=== PATIENT | male | born 1955 | race Caucasian/White ===

== ENCOUNTER → 2019-11-30 20:31 | Outpatient (CLI) | payer MEDICARE | END | disposition home or self-care (01) | LOC: D.LABREF 20:31 | PROVIDERS: ATTEND Orthopaedic Surgery | DX: M17.12 Unilateral primary osteoarthritis, left knee (principal) ==

== ENCOUNTER 2019-12-14 09:35 | Inpatient (IN) | payer MEDICARE ==
[~2019-12-14] VITALS: Ht 177.8 cm; Wt 91.8 kg
[2019-12-14] MEDS ORDERED: ULTRAM50 MG PO (10:38)
[2019-12-14] MEDS ORDERED: NORVASC10 MG PO (10:39)
[2019-12-14] MEDS ORDERED: NEURONTIN 300300 MG PO (10:39)
[2019-12-14] MEDS ORDERED: ZANAFLEX4 MG (10:40)
[2019-12-14 11:02] LABS: BASOPHILS 0.4 % (0-2); HEMATOCRIT 44.3 % (42.0-54.0); HEMOGLOBIN 15.5 g/dL (13.5-17.5); IMMATURE GRANULOCYTES 0.2 % (0-5); LYMPHOCYTES 25.2 % (15-50); MCH 31.9 pg (26.0-34.0); MCV 91.2 fL (80.0-100.0); NEUTROPHILS 55.2 % (40-80); PLATELET COUNT 208 10x3/uL (130-400); RBC 4.86 10x6/uL (4.20-6.10); RDW 12.7 % (11.5-14.5); WBC 5.1 10x3/uL (4.8-10.8)
[2019-12-14] MEDS ORDERED: NEURONTIN 300300 MG (11:04)
[2019-12-14] MEDS ORDERED: NEURONTIN600 MG (11:05)
[2019-12-14 11:06] LABS: APTT 27.1 SECONDS (22.8-39.4); PROTIME 13.2 SECONDS (11.6-15.0)
[2019-12-14 11:08] LABS: APPEARANCE CLEAR (CLEAR); BILIRUBIN NEGATIVE (NEGATIVE); COLOR YELLOW (YELLOW); GLUCOSE NEGATIVE (NEGATIVE); KETONE NEGATIVE (NEGATIVE); NITRITE NEGATIVE (NEGATIVE); PROTEIN NEGATIVE (NEGATIVE); UROBILINOGEN NORMAL (NORMAL)
[2019-12-14 11:17] LABS: ANION GAP 8.5 mmol/L (8-16); CALCIUM 8.7 mg/dL (8.5-10.1); CARBON DIOXIDE 31.1 mmol/L (21.0-32.0); CREATININE - SERUM 1.1 mg/dL (0.6-1.3); POTASSIUM - SERUM 3.6 mmol/L (3.5-5.1)
[2019-12-21 07:45] VITALS: BP 127/76; BMI 29.1
--- NOTE | 2019-12-21 11:04 | NUR ---
LEG WAS PREPPED WITH CHLOREP[REP AFTER USING HIBICLENS AND ACOHOL
--- NOTE | 2019-12-21 12:47 | NUR ---
CARE ASSUMED FROM MERT CARLISLE RN
--- NOTE | 2019-12-21 12:49 | NUR ---
CARE ASSUMED FROM MERT CARLISLE RN
[2019-12-21 13:31] VITALS: BP 106/73
[2019-12-21 14:09] VITALS: Ht 177.8 cm; Wt 91.8 kg
--- NOTE | 2019-12-21 16:17 | NUR ---
OT NOTE: PT COMPLETED BED MOB WITH MOD A. PT COMPLETED FACE WASH WITH SETUP. [phone] THANK YOU, JACKIE RAMIREZ
[2019-12-21 17:53] VITALS: BP 115/74
[2019-12-21 18:08] VITALS: BP 115/74
--- NOTE | 2019-12-21 20:59 | NUR ---
REC'D WALKING ROUNDS CHGE OF SHIFT DRSG DRY AND INTACT LEFT KNEE WITH WOUND VAC IN PLACE GLENN JAIMES CPM KORINA WELL FOOT PINK AND WARM PEADAL PULSE PRESENT STATES BLK HAS WORN OFF ALREADY RATING PAIN5 ON 1-10 PAIN SCALE. WILL CONTINUE TO MONITOR FOR ANY CHGES IN NEUROVASCULAR STATUS AND FOLLOW CURRENT PLAN OF CARE
[2019-12-21 21:05] VITALS: BP 130/84
[2019-12-22 01:49] VITALS: BP 113/68
[2019-12-22 05:53] VITALS: BP 148/76
[2019-12-22 06:47] LABS: BASOPHILS 0 % (0-2); EOSINOPHILS 0 % (0-7); HEMATOCRIT 40.7 % (42.0-54.0); HEMOGLOBIN 14.2 g/dL (13.5-17.5); IMMATURE GRANULOCYTES 0.2 % (0-5); LYMPHOCYTES 7.5 % (15-50); MCH 31.7 pg (26.0-34.0); MCHC 34.9 g/dL (31.0-37.0); MCV 90.8 fL (80.0-100.0); MEAN PLATELET VOLUME 11.5 fL (7.4-10.4); MONOCYTES 9.7 % (2-11); NEUTROPHILS 82.6 % (40-80); PLATELET COUNT 225 10x3/uL (130-400); RBC 4.48 10x6/uL (4.20-6.10); RDW 12.6 % (11.5-14.5); WBC 12.3 10x3/uL (4.8-10.8)
[2019-12-22 07:06] LABS: ALBUMIN 3.4 g/dL (3.4-5.0); BILIRUBIN - TOTAL 0.45 mg/dL (0.2-1.3); CARBON DIOXIDE 27.4 mmol/L (21.0-32.0); CREATININE - SERUM 1.3 mg/dL (0.6-1.3); POTASSIUM - SERUM 4.4 mmol/L (3.5-5.1); PROTEIN - SERUM 6.1 g/dL (6.4-8.2)
--- NOTE | 2019-12-22 08:34 | OP ---
PATIENT NAME: MALIHA SANTANA MEDICAL RECORD: [id number] :51 LOCATION:[facility] ADMISSION DATE:12/21/19 SURGEON: MALIHA BOO DO DATE OF OPERATION: 12/21/2019 PROCEDURE PERFORMED: Left total knee arthroplasty. PREOPERATIVE DIAGNOSIS: Left knee osteoarthritis. POSTOPERATIVE DIAGNOSIS: Left knee osteoarthritis. INDICATIONS: Mr. Santana is a 64-year-old male who has had left knee pain for quite some time. He has tried all manner of nonoperative treatment including injections, physical therapy, and is tired of the left knee pain and is affecting activities of daily living and he wants something done surgically. I informed her of the risks including infection, bleeding, damage to nerves and vessels, need for further surgery, fracture, failure of implant, continued knee pain, blood clots, continued numbness, and even . He signed the consent. SURGEON: Maliha Boo DO DESCRIPTION OF PROCEDURE: The patient received an adductor canal block in the preoperative area by anesthesia, was taken to the operative suite, given a spinal. He was then laid in the left lateral decubitus position for about 5 minutes and laid on supine and given general anesthetic and LMA was placed. He was given 2 grams of Ancef and 80 mg gentamicin and a gram of TXA and then the left lower extremity was prepped and draped in sterile fashion. A timeout was performed and everyone was in agreement with the correct side, site, patient and procedure. We then began by marking out the incision on the anterior knee and then covered in Ioban. I then used 10 blade scalpel to go down to the capsule and thorough dissection was made down to the capsule. A fresh 10 blade was used through the medial parapatellar approach through the capsule. The fat pad was partially removed and any bleeding was coagulated with Aquamantys throughout the procedure. The tourniquet was not used. The patella was then exposed and milled down. Then, the knee was flexed up and the ACL was removed and the drill was used to enter the femoral canal. Once femoral canal was entered, the distal cutting guide was used and distal femur was cut. The proximal tibia was then cut and this was exposed. A 2 mm were taken off the low portion of the medial aspect and the knee was brought to extension. Next, the menisci and any other soft tissue was removed. At that time, the medial and lateral and oblique was closed with Aquamantys. We then put the 10 extension block and was found to have an MCL release. The knee was then flexed up and the femur sized to a 70. Once femur was sized, the 4-in-1 cutting block was put on and the Chintan wing was used to ensure it would not notch and the 4-in-1 cutting block had been put on and the cuts were made through the block. The cutting block was removed and the bone was removed. The trial was then put on and the poly and tray were floated in and range of rotation was marked. I then drilled the lug holes for the femur and for the patella implant. The tibia was then exposed and sized to a 75 tray. This was reamed and then punched and then extra holes were put in the tibia for the cement. The cement was then mixed and placed on the tibial implant in the tibia and the implant was impacted into place. Excess cement was removed. The femur was impacted on and then the 10 poly was put in between them and brought to extension and the patella was irrigated out and curetted out and then cemented put in that hand on the implant and screws into place. Excess cement was removed. We then irrigated the knee and then put povidine iodine in normal OPERATIVE REPORT [id number] MALIHA SANTANA saline solution in the knee and set for 3 minutes. After 3 minutes, it was then irrigated out with over about a liter of normal saline and then the poly was size 10 fit very well, had good stability medial laterally in flexion and extension. We then irrigated one more time and the final implant was put in and locked into place by locking mechanism. Amaya and vancomycin powder then placed inside the knee and the capsule was closed with #2 Ethibond in [id number]-az-plfmu fashion. The skin was closed with 2-0 Vicryl interrupted fashion and ZipLine was placed on the knee and then the VAC placed over that. He was then awakened and taken to recovery in stable condition. Blood loss was approximately 200 mL. COMPLICATIONS: None TRANSINT:[id number] Voice Confirmation ID: [id number] DOCUMENT ID: [id number] MALIHA BOO DO at 0834 CC: [id number] DICTATION DATE: 12/21/19 1240 DISEASE CASE MANAGER: 12/21/[address] [facility] [address] [id number]
[2019-12-22 10:06] VITALS: BP 115/73
--- NOTE | 2019-12-22 12:15 | NUR ---
OT NOTE: PT DOING MUCH BETTER TODAY. REPORTS PAIN IS 8/10. STATES THAT HE WAS CHANGED FROM IV TO ORAL PAIN MED AND IT WAS NOT HELPING MUCH. PT ABLE TO PERFORM ROLLING FROM SIDE TO SIDE WITH MIN ASSIST; SUPINE TO SIT WITH MIN ASSIST. SIT TO STAND WITH SBA. AMB IN ROOM AND INTO HALLWAY APPROX 75 FT WITH WALKER, IV, WOUND VAC, AND MIN/CGA. NO DRAINAGE NOTED IN WOUND VAC CONTAINER. REQUIRES MOD ASSIST FOR LE DRESSING BUT SET UP FOR REMAINDER OF BASIC ADLS. PT REPORTS FATIGUE AND WEAKNESS UPON RETURN TO ROOM. TOLERATED SITTING UP IN CHAIR WITHOUT DIFFICULTY. ISIDRO PELLETIER, OTR/L [phone]
[2019-12-22 13:42] VITALS: BP 146/93
[2019-12-22 16:34] VITALS: BP 129/78
--- NOTE | 2019-12-22 19:30 | NUR ---
PT RESTING IN BED WITH EYS CLOSED, FAMILY AT BEDSIDE, AND CPM ON L KNEE. NO ACUTE S/S OF DISTRESS. NO C/O AT THIS TIME. PATIENT HAS IV IN R WRIST 1/2 NORMAL SALINE. IV IS PATENT WITHOUT REDNESS, SWELLING, OR TEDNERNESS. PATIENT HAD A TOTAL KNEE YESTERDAY WITH PREVENA VAC ON AND GLENN HOSE. PATIENT HAS A COLOSTOMY THAT PATIENT TAKES CARE OF THEMSELVES. CALL LIGHT IN PLACE. WILL CONTINUE TO MONITOR.
[2019-12-22 20:00] VITALS: BP 128/82
[2019-12-23] VITALS: BP 114/71
--- NOTE | 2019-12-23 03:00 | NUR ---
I have reviewed this patient and I concur with the Shift Assessment completed by the Licensed Practical Nurse today this shift.
--- NOTE | 2019-12-23 03:24 | NUR ---
I have reviewed this patient and I concur with the Shift Assessment completed by the Licensed Practical Nurse today this shift.
[2019-12-23 04:00] VITALS: BP 115/69
[2019-12-23 05:17] LABS: BASOPHILS 0.1 % (0-2); EOSINOPHILS 0.1 % (0-7); HEMATOCRIT 36.1 % (42.0-54.0); HEMOGLOBIN 12.5 g/dL (13.5-17.5); IMMATURE GRANULOCYTES 0.3 % (0-5); LYMPHOCYTES 17.7 % (15-50); MCH 31.6 pg (26.0-34.0); MCHC 34.6 g/dL (31.0-37.0); MCV 91.4 fL (80.0-100.0); MEAN PLATELET VOLUME 11.3 fL (7.4-10.4); MONOCYTES 15.4 % (2-11); NEUTROPHILS 66.4 % (40-80); RBC 3.95 10x6/uL (4.20-6.10); RDW 12.7 % (11.5-14.5)
[2019-12-23 05:27] LABS: PLATELET COUNT 176 10x3/uL (130-400); WBC 7.3 10x3/uL (4.8-10.8)
[2019-12-23 05:32] LABS: ALBUMIN 2.9 g/dL (3.4-5.0); ANION GAP 12.2 mmol/L (8-16); BILIRUBIN - TOTAL 0.54 mg/dL (0.2-1.3); CALCIUM 7.8 mg/dL (8.5-10.1); CARBON DIOXIDE 26.6 mmol/L (21.0-32.0); CREATININE - SERUM 1.1 mg/dL (0.6-1.3); POTASSIUM - SERUM 3.8 mmol/L (3.5-5.1); PROTEIN - SERUM 5.7 g/dL (6.4-8.2)
--- NOTE | 2019-12-23 08:35 | MORECARE ---
CASE MANAGEMENT DISCHARGE SUMMARY PATIENT: MALIHA RASHID UNIT: [id number] ADM DATE: 12/21/19 AGE: 64 : 53 SEX: M ROOM/BED: D.2203 AUTHOR: KETTY HARDY PHYSICIAN: REFERRING PHYSICIAN: MALIHA BOO DO DATE OF SERVICE: 12/23/19 Discharge Plan Patient Name: MALIHA RASHID [facility] [facility] 1955 Planned Disposition: Home with Home Health Anticipated Discharge Date: Discharge Date: Expected LOS: Initial Reviewer: [email or web address] Initial Review Date: 12/14/2019 Generated: 12/23/19 9:34 am DCPIA - Discharge Planning Initial Assessment Updated by [email or web address]: Catalina Diaz on 12/23/19 8:33 am * Is the patient Alert and Oriented? Yes * How many steps to enter\exit or inside your home? * PCP TRACEY PATRICK * [facility] * Preadmission Environment Home with Family * ADLs Independent * Equipment Bedside Commode Rolling Walker * Other Equipment CPM ICE MACHINE * List name and contact numbers for known caregivers / representatives who currently or will assist patient after discharge: RAJ RASHID [phone] * Verbal permission to speak to the caregivers and representatives has been obtained from the patient. N/A * Community resources currently utilized None * Additional services required to return to the preadmission environment? Yes * Can the patient safely return to the preadmission environment? Yes * Has this patient been hospitalized within the prior 30 days at any hospital? No Patient Name: MALIHA RASHID Page [phone] at 0835 All edits/amendments must be made on the electronic document DICTATION DATE: 12/23/19833 AUTO TIRE RECAPPER: GREGORY 12/23/19833 RPT#: [id number] DC DATE: STATUS: ADM IN [facility] [address] [place] [address] END OF REPORT
--- NOTE | 2019-12-23 08:41 | MORECARE ---
CASE MANAGEMENT DISCHARGE SUMMARY PATIENT: MALIHA RASHID UNIT: [id number] ADM DATE: 12/21/19 AGE: 64 : 53 SEX: M ROOM/BED: D.2203 AUTHOR: HAYLEY,DOC PHYSICIAN: REFERRING PHYSICIAN: MALIHA BOO DO DATE OF SERVICE: 12/23/19 Discharge Plan Patient Name: MALIHA RASHID Facility: [facility]:[place] : 1955 Planned Disposition: Home with Home Health Anticipated Discharge Date: Discharge Date: Expected LOS: Initial Reviewer: [email or web address] Initial Review Date: 12/14/2019 Generated: 12/23/19 9:41 am Comments DCP- Discharge Planning Updated by [email or web address]: Catalina Diaz on 12/23/19 7:[address] Patient Name: MALIHA RASHID Admission Status: Elective Accout number: [id number] Admission Date: 12-21-2019 : 1955 Admission Diagnosis: Attending: MALIHA BOO Current LOS: 2 Anticipated DC Date: Planned Disposition: Home with Home Health Primary Insurance: [employer] ADV Discharge Planning Comments: CM met with patient to complete initial dc planning assessment. CM educated patient on the CM role and verbal consent given by patient to complete assessment. Patient lives at home with his spouse where he is independent with his care. At discharge patient plans to return home and feels this is a safe discharge. CM discussed availability of home health, rehab services, and medical equipment. He has a CPM, walker, Ice Machine, BSC that was set up by Dr Boo's office. He would like to use [facility] in [place] for his PT. He states that he lives to far to come into town for PT. Patient denied any other known discharge needs at this time. CM will continue to follow and will assist as needed with dc plans/needs. Pediatric Neuropsychologist: Catalina Diaz DCPIA - Discharge Planning Initial Assessment Updated by [email or web address]: Catalina Diaz on 12/23/19 8:33 am * Is the patient Alert and Oriented? Yes * How many steps to enter\exit or inside your home? * PCP TRACEY PATRICK * [facility] * Preadmission Environment Home with Family * ADLs Independent * Equipment Bedside Commode Rolling Walker * Other Equipment CPM ICE MACHINE * List name and contact numbers for known caregivers / representatives who currently or will assist patient after discharge: RAJ RASHID [phone] * Verbal permission to speak to the caregivers and representatives has been obtained from the patient. N/A * Community resources currently utilized None * Additional services required to return to the preadmission environment? Yes * Can the patient safely return to the preadmission environment? Yes * Has this patient been hospitalized within the prior 30 days at any hospital? No Coverage Notice Reviewer: [email or web address] Jaskaran Diaz Notice Issued Date-Time: 12/23/2019 7:50 Notice Type: Patient Choice Letter Notice Delivered To: Patient Relationship to Patient: Extermination Supervisor Name: Delivery Method: HAND - Hand Delivered Neha Days: Prior Verbal Notification: Recipient Understood Notice: Yes Recipient Signature: Yes Med Rec Note Co-signed by Attending: Coverage Notice Comment: tyra for elite in todd Last DP export: 12/23/19 7:34 a Patient Name: MALIHA RASHID Page [phone] at 0841 All edits/amendments must be made on the electronic document DICTATION DATE: 12/23/19840 FISCAL ACCOUNTING CLERK: GREGORY 12/23/19840 RPT#: [id number] DC DATE: STATUS: ADM IN [facility] [address] [place] [address] END OF REPORT
[2019-12-23 08:45] VITALS: BP 138/85
--- NOTE | 2019-12-23 09:00 | NUR ---
ALERT AND ORIENTED X4 DRESSING INTACT TO LLE WITH PEDAL PULSES NOTED. UP AMBULATING WITH R/WALKER WITH TORDOL GIVEN AND DILAUDID FOR PAIN MANAGEMENT AND EFFECTIVE. COLOSTOMY INTACT. IVF INFUSING AT PRESCRIBED RATE WITH DR. BOO HERE WITH ORDERS FOR DISCHARGE. ENCOURAGED TO USE CALL LIGHT FOR ASSSIT.
--- NOTE | 2019-12-23 09:01 | MORECARE ---
CASE MANAGEMENT DISCHARGE SUMMARY PATIENT: MALIHA RASHID UNIT: [id number] ADM DATE: 12/21/19 AGE: 64 : 53 SEX: M ROOM/BED: D.2203 AUTHOR: HAYLEY,DOC PHYSICIAN: REFERRING PHYSICIAN: MALIHA BOO DO DATE OF SERVICE: 12/23/19 Discharge Plan Patient Name: MALIHA RASHID Facility: [facility]:[place] : 1955 Planned Disposition: Home with Home Health Anticipated Discharge Date: Discharge Date: Expected LOS: Initial Reviewer: [email or web address] Initial Review Date: 12/14/2019 Generated: 12/23/19 10:00 am Comments DCP- Discharge Planning Updated by [id number]: Catalina Diaz on 12/23/19 7:[address] Patient Name: MALIHA RASHID Admission Status: Elective Accout number: [id number] Admission Date: 12-21-2019 : 1955 Admission Diagnosis: Attending: MALIHA BOO Current LOS: 2 Anticipated DC Date: Planned Disposition: Home with Home Health Primary Insurance: [employer] ADV Discharge Planning Comments: CM met with patient to complete initial dc planning assessment. CM educated patient on the CM role and verbal consent given by patient to complete assessment. Patient lives at home with his spouse where he is independent with his care. At discharge patient plans to return home and feels this is a safe discharge. CM discussed availability of home health, rehab services, and medical equipment. He has a CPM, walker, Ice Machine, BSC that was set up by Dr Boo's office. He would like to use [facility] in [place] for his PT. He states that he lives to far to come into town for PT. Patient denied any other known discharge needs at this time. CM will continue to follow and will assist as needed with dc plans/needs. Operations Associate: Catalina Diaz DCPIA - Discharge Planning Initial Assessment Updated by [email or web address]: Catalina Diaz on 12/23/19 8:33 am * Is the patient Alert and Oriented? Yes * How many steps to enter\exit or inside your home? * PCP TRACEY PATRICK * [facility] * Preadmission Environment Home with Family * ADLs Independent * Equipment Bedside Commode Rolling Walker * Other Equipment CPM ICE MACHINE * List name and contact numbers for known caregivers / representatives who currently or will assist patient after discharge: RAJ RASHID [phone] * Verbal permission to speak to the caregivers and representatives has been obtained from the patient. N/A * Community resources currently utilized None * Additional services required to return to the preadmission environment? Yes * Can the patient safely return to the preadmission environment? Yes * Has this patient been hospitalized within the prior 30 days at any hospital? No External Providers [facility] Next Contact Date: Service Request Date: Service Type: Resolution: Reviewer: Comments: Coverage Notice Reviewer: [id number] Jaskaran Diaz Notice Issued Date-Time: 12/23/2019 7:50 Notice Type: Patient Choice Letter Notice Delivered To: Patient Relationship to Patient: Porter Baggage Name: Delivery Method: HAND - Hand Delivered Neha Days: Prior Verbal Notification: Recipient Understood Notice: Yes Recipient Signature: Yes Med Rec Note Co-signed by Attending: Coverage Notice Comment: tyra for ursula in todd Last DP export: 12/23/19 7:41 a Patient Name: MALIHA RASHID Page [phone] at 0901 All edits/amendments must be made on the electronic document DICTATION DATE: 12/23/19899 ELECTRIC PILE DRIVER OPERATOR: GREGORY 12/23/19899 RPT#: [id number] DC DATE: STATUS: ADM IN [facility] [address] [place] [address] END OF REPORT
[2019-12-23] MEDS ORDERED: VISTARIL50 MG PO (09:14)
[2019-12-23] MEDS ORDERED: KEFLEX500 MG PO (09:14)
[2019-12-23] MEDS ORDERED: ASPIRIN81 MG PO (09:14)
[2019-12-23] MEDS ORDERED: DILAUDID4 MG PO (09:17)
--- NOTE | 2019-12-23 13:30 | NUR ---
IV DISCONTINUED AND VERBALIZED UNDERSTANDING OF DISCHARGE INSTRUCTIONS. STABLE AT TIME OF DEPARTURE WITH PORVENA VAC INTAACT TO LEFT KNEE.
--- NOTE | 2019-12-24 15:49 | MORECARE ---
CASE MANAGEMENT DISCHARGE SUMMARY PATIENT: MALIHA RASHID UNIT: [id number] ADM DATE: 12/21/19 AGE: 64 : 53 SEX: M ROOM/BED: D.2203 AUTHOR: HAYLEY,DOC PHYSICIAN: REFERRING PHYSICIAN: MALIHA BOO DO DATE OF SERVICE: 12/24/19 Discharge Plan Patient Name: MALIHA RASHID Facility: [facility]:[place] : 1955 Planned Disposition: Home with Home Health Anticipated Discharge Date: Discharge Date: 12/23/2019 Expected LOS: Initial Reviewer: [email or web address] Initial Review Date: 12/14/2019 Generated: 12/24/19 4:48 pm Comments DCP- Discharge Planning Updated by [email or web address]: Catalina Diaz on 12/23/19 7:[address] Patient Name: MALIHA RASHID Admission Status: Elective Accout number: [id number] Admission Date: 12-21-2019 : 1955 Admission Diagnosis: Attending: MALIHA BOO Current LOS: 2 Anticipated DC Date: Planned Disposition: Home with Home Health Primary Insurance: [employer] ADV Discharge Planning Comments: CM met with patient to complete initial dc planning assessment. CM educated patient on the CM role and verbal consent given by patient to complete assessment. Patient lives at home with his spouse where he is independent with his care. At discharge patient plans to return home and feels this is a safe discharge. CM discussed availability of home health, rehab services, and medical equipment. He has a CPM, walker, Ice Machine, BSC that was set up by Dr Boo's office. He would like to use [facility] in [place] for his PT. He states that he lives to far to come into town for PT. Patient denied any other known discharge needs at this time. CM will continue to follow and will assist as needed with dc plans/needs. Tribunal Member: Catalina Diaz DCPIA - Discharge Planning Initial Assessment Updated by [email or web address]: Catalina Diaz on 12/23/19 8:33 am * Is the patient Alert and Oriented? Yes * How many steps to enter\exit or inside your home? * PCP TRACEY PATRICK * [facility] * Preadmission Environment Home with Family * ADLs Independent * Equipment Bedside Commode Rolling Walker * Other Equipment CPM ICE MACHINE * List name and contact numbers for known caregivers / representatives who currently or will assist patient after discharge: RAJ RASHID [phone] * Verbal permission to speak to the caregivers and representatives has been obtained from the patient. N/A * Community resources currently utilized None * Additional services required to return to the preadmission environment? Yes * Can the patient safely return to the preadmission environment? Yes * Has this patient been hospitalized within the prior 30 days at any hospital? No Coverage Notice Reviewer: [email or web address] Jaskaran Diaz Notice Issued Date-Time: 12/23/2019 7:50 Notice Type: Patient Choice Letter Notice Delivered To: Patient Relationship to Patient: Evaluation Engineer Name: Delivery Method: HAND - Hand Delivered Neha Days: Prior Verbal Notification: Recipient Understood Notice: Yes Recipient Signature: Yes Med Rec Note Co-signed by Attending: Coverage Notice Comment: tyra for elite in todd Last DP export: 12/23/19 8:01 a Patient Name: MALIHA RASHID Page [phone] at 1549 All edits/amendments must be made on the electronic document DICTATION DATE: 12/24/19 1548 MEDICAL BILLING MANAGER: GREGORY 12/24/19 1548 RPT#: [id number] DC DATE:12/23/19 STATUS: DIS IN [facility] [address] [place] [address] END OF REPORT
== END 2019-12-23 13:30 | disposition home health service (06) | DRG 470 ==
LOC: D.SDCHOLD 12-21 07:10 → D.MS 12-21 07:10 → D.SDCHOLD 12-21 09:30 → D.MS 12-21 12:55
PROVIDERS: Internal Medicine Nephrology; ADMIT Orthopaedic Surgery; ATTEND Orthopaedic Surgery
PROC: 0SRD0J9 Replacement of Left Knee Joint with Synthetic Substitute, Cemented, Open Approach (ICD-10-PCS; principal; 2019-12-21 09:30)
DX: M17.12 Unilateral primary osteoarthritis, left knee (principal); I10 Essential (primary) hypertension; Z85.038 Personal history of other malignant neoplasm of large intestine

== ENCOUNTER → 2020-07-26 16:00 | Outpatient (CLI) | payer MEDICARE ==
[2019-12-21 14:09] VITALS: BMI 29.0
[~2020-07-26 16:00] MED LIST: ASPIRIN81 MG PO; DILAUDID4 MG PO; KEFLEX500 MG PO; NEURONTIN 300300 MG; NEURONTIN 300300 MG PO; NEURONTIN600 MG; NORVASC10 MG PO; ULTRAM50 MG PO; VISTARIL50 MG PO; ZANAFLEX4 MG
[2020-07-26 18:16] LABS: BASOPHILS 0.4 % (0-2); EOSINOPHILS 3.1 % (0-7); HEMATOCRIT 45.3 % (42.0-54.0); HEMOGLOBIN 15.7 g/dL (13.5-17.5); LYMPHOCYTES 28.9 % (15-50); MCH 31.2 pg (26.0-34.0); MCHC 34.7 g/dL (31.0-37.0); MCV 90.1 fL (80.0-100.0); MONOCYTES 11.2 % (2-11); NEUTROPHILS 56.4 % (40-80); PLATELET COUNT 208 10x3/uL (130-400); RBC 5.03 10x6/uL (4.20-6.10); RDW 13.2 % (11.5-14.5); WBC 4.5 10x3/uL (4.8-10.8)
[2020-07-26 19:12] LABS: ERYTHROCYTE SEDIMENTATION RATE 3 mm/hr (0-20)
== END | disposition home or self-care (01) ==
LOC: D.LABREF 16:00
PROVIDERS: ATTEND Clinical Nurse Specialist Family Health
DX: M25.562 Pain in left knee (principal)